=== PATIENT | male | born 1975 | race African-American/Black ===

== ENCOUNTER 2023-09-07 15:23 | Inpatient (IN) | payer OTHER ==
[2023-09-07 16:23] LABS: Actual Bicarbonate (HCO3v) 31.1 mEq/L (22-28); Calcium, Ionized (venous) 1.09 mmol/L (1.16-1.32); Chloride (VBG) 92 mmol/L (98-106); Hematocrit-VBG 51 % (42.0-52.0); Hemoglobin (Hb) 17.4 g/dL (13.1-17.2); Potassium (VBG) 4.39 mmol/L (3.70-5.30); Puncture Site Other Site; Sodium 137 mmol/L (133-146); pH (venous) 7.206 (7.32-7.43)
[2023-09-07 16:36] LABS: #Basophils 0.1 10x3/uL (0.0-0.2); #Eosinphils 0.2 10x3/uL (0.0-0.5); #Monocytes 1.1 10x3/uL (0.0-1.1); #Neutrophils 9.3 10x3/uL (1.5-8.4); %Basophils 0.8 % (0.0-2.0); %Eosinophils 1.2 % (0.0-6.0); %Lymphocytes 17.7 % (18.0-47.0); %Monocytes 8.3 % (0.0-10.0); %Neutrophils 71.3 % (40.0-75.0); Hematocrit 54.9 % (38.8-50.0); Hemoglobin 16.3 g/dL (13.5-17.5); Mean Corpuscular HGB CONC 29.7 g/dL (32.0-36.0); Mean Corpuscular Hemoglobin 26.5 pg (27.0-33.0); Mean Corpuscular Volume 89.3 fl (81.2-95.1); Mean Platelet Volume 10.2 fl (7.4-10.4); Platelet Count 242 10x3/uL (150-450); RBC Distribution Width 17.8 % (11.5-14.5); Red Blood Cell (RBC) Count 6.15 10x6/uL (4.32-5.72); White Blood Cell (WBC) Count 13.1 10x3/uL (3.5-10.5)
[2023-09-07 16:53] LABS: ALT (SGPT) 11 U/L (8-55); AST (SGOT) 15 U/L (5-34); Albumin 4.1 g/dL (3.5-5.0); Alkaline Phosphatase 71 U/L (40-110); Anion Gap 16 mmol/L (10-20); BUN (Urea Nitrogen) 14 mg/dL (8.9-20.6); Bilirubin, Total 1.1 mg/dL (0.2-1.2); Calc. Creatinine Clearance 0 mL/min (70-130); Carbon Dioxide 34 mmol/L (22-29); Chloride 91 mmol/L (98-107); Estimated GFR 83; Globulin 4.3 g/dL (2.4-3.5); Glucose 321 mg/dL (70-105); Potassium 4.5 mmol/L (3.5-5.1); Protein, Total 8.4 g/dL (6.0-8.3); Sodium 136 mmol/L (136-145)
[2023-09-07 16:55] LABS: SARS-CoV-2 NAA Rapid Test Not Detected (NotDetected)
[2023-09-07 17:16] LABS: Troponin I Less than 0.010 ng/mL (< 0.028)
[2023-09-07] MEDS ORDERED: Furosemide 40 MG/4 ML VIAL ONE (17:39)
[2023-09-07] MEDS ORDERED: cefTRIAXone (ROCEPHIN) 2 GM VIAL ONE (18:46)
[2023-09-07] MEDS ORDERED: Ipratropium/Albuterol 3 ML NEB ONE (19:10)
[2023-09-07] MEDS ORDERED: Azithromycin 500 MG VIAL ONE (19:21)
[2023-09-07 19:24] LABS: Actual Bicarbonate (HCO3v) 30.5 mEq/L (22-28); Base Excess 0.1 mEq/L (-2 - +2); Calcium, Ionized (venous) 1.07 mmol/L (1.16-1.32); Chloride (VBG) 92 mmol/L (98-106); Critical Notified By: Udy, RRT; Hematocrit-VBG 51 % (42.0-52.0); Hemoglobin (Hb) 17.4 g/dL (13.1-17.2); Potassium (VBG) 4.54 mmol/L (3.70-5.30); Puncture Site Other Site; RapidComm Collect By lab; Sodium 136 mmol/L (133-146); pH (venous) 7.229 (7.32-7.43)
[2023-09-07 19:28] LABS: Lactic Acid 1.5 mmol/L (0.5-2.2)
[2023-09-07] MEDS ORDERED: Glucagon 1 MG/ML KIT IM PRN (20:16)
[2023-09-07] MEDS ORDERED: Dextrose 5% in Water 1,000 ML IV PRN (20:16)
[2023-09-07] MEDS ORDERED: Dextrose 50% Abboject 50 ML SYRINGE SLOW IVP PRN (20:16)
[2023-09-07] MEDS ORDERED: Arformoterol 15 MCG/2 ML NEB NEB SCH (20:30)
[2023-09-07 20:38] LABS: Magnesium 2.3 mg/dL (1.6-2.6)
[2023-09-07] MEDS ORDERED: DISCONTINUE PREVIOUS NARCOTIC PAIN MEDICATIONS AND BENZODIAZEPINES FS SCH (22:15)
[2023-09-07] MEDS ORDERED: Propofol BOLUS 1,000 MG/100 ML VIAL IV PRN (22:15)
[2023-09-07] MEDS ORDERED: Fentanyl BOLUS 250 ML IVPB PRN (22:15)
[2023-09-07] MEDS: SODIUM CHLORIDE 0.9% IV SCH (22:25)
[2023-09-07] MEDS: FENTANYL IV SCH (22:25)
[2023-09-07] MEDS: Ipratropium/Albuterol 3 ML NEB NEB SCH (22:30)
[2023-09-07] MEDS: Lorazepam 2 MG/ML VIAL SLOW IVP PRN (22:30)
[2023-09-07 23:10] LABS: Bilirubin Neg (Negative); Blood, Urine 25 (Negative); Clarity Clear (Clear); Glucose, Urine (Dipstick) >=1000 mg/dL (Negative); Ketone, Urine Negative (Negative); Leukocyte Negative (Negative); Nitrite Negative (Negative); Protein, Urine (Dipstick) 500 mg/dl (Neg-Trace); Specific Gravity, Urine 1.025 (1.005-1.030)
[2023-09-07 23:18] LABS: Amphetamine Not Detected (NotDetected); Barbiturates Screen Not Detected (NotDetected); Benzodiazepine Screen Not Detected (NotDetected); Cocaine Metabolite Screen Not Detected (NotDetected); Methadone Not Detected (NotDetected); Methamphetamine Not Detected (NotDetected); Opiate Screen Not Detected (NotDetected); Oxycodone Screen Not Detected (NotDetected); Phencyclidine (PCP) Not Detected (NotDetected); THC/Cannabinoid Screen Not Detected (NotDetected); Tricyclic Screen Not Detected (NotDetected)
[2023-09-07 23:43] LABS: Bacteria/HPF 2+ HPF (None Seen)
[2023-09-07] MEDS: methylPREDNISolone Sod Succ 40 MG VIAL IVP SCH (23:43)
[2023-09-07] MEDS: Pantoprazole 40 MG VIAL IVP SCH (23:56)
[2023-09-08 00:19] LABS: Actual Bicarbonate (HCO3a) 36.6 mEq/L (22-28); Base Excess (BEa) 2.7 mEq/L (-2.0 to +3.0); CO2 Tension 108.6 mmHg (35.0-45.0); Calcium, Ionized (arterial) 1.19 mmol/L (1.12-1.30); Carboxyhemoglobin (COHb) 1.3 gm% (0.0-3.0); Hematocrit-ABG 51 % (42.0-52.0); Hemoglobin (Hb) 17.2 g/dL (14.0-18.0); O2 Tension (PaO2), arterial 93.3 mmHg (80.0-100.0); Potassium - ABG Lab 5.32 mmol/L (3.70-5.30); Puncture Site LRA; pH, Arterial 7.145 (7.35-7.45)
[2023-09-08 00:21] LABS: Actual Bicarbonate (HCO3a) 34.5 mEq/L (22-28); Base Excess (BEa) 4.1 mEq/L (-2.0 to +3.0); CO2 Tension 77.8 mmHg (35.0-45.0); Calcium, Ionized (arterial) 1.12 mmol/L (1.12-1.30); Carboxyhemoglobin (COHb) 1.3 gm% (0.0-3.0); Hematocrit-ABG 50 % (42.0-52.0); Hemoglobin (Hb) 17.1 g/dL (14.0-18.0); O2 Tension (PaO2), arterial 102.3 mmHg (80.0-100.0); Potassium - ABG Lab 5.18 mmol/L (3.70-5.30); Puncture Site RRA; Temperature 23.6 C; pH, Arterial 7.265 (7.35-7.45)
[2023-09-08] MEDS: Propofol 1,000 MG/100 ML VIAL IV PRN ×7 (00:50→23:15)
[2023-09-08] MEDS: Ipratropium/Albuterol 3 ML NEB NEB SCH ×7 (01:23→22:07)
[2023-09-08 04:16] LABS: #Basophils 0.1 10x3/uL (0.0-0.2); #Monocytes 0.6 10x3/uL (0.0-1.1); #Neutrophils 10.8 10x3/uL (1.5-8.4); %Basophils 0.5 % (0.0-2.0); %Eosinophils 0.1 % (0.0-6.0); %Lymphocytes 7.8 % (18.0-47.0); %Monocytes 4.9 % (0.0-10.0); %Neutrophils 86.1 % (40.0-75.0); Hematocrit 52.8 % (38.8-50.0); Mean Corpuscular HGB CONC 30.3 g/dL (32.0-36.0); Mean Corpuscular Hemoglobin 26.5 pg (27.0-33.0); Mean Corpuscular Volume 87.4 fl (81.2-95.1); Mean Platelet Volume 11.1 fl (7.4-10.4); Platelet Count 223 10x3/uL (150-450); Red Blood Cell (RBC) Count 6.04 10x6/uL (4.32-5.72); White Blood Cell (WBC) Count 12.6 10x3/uL (3.5-10.5)
[2023-09-08 04:23] LABS: ALV-art Gradient 428.625 mmHg (0-20); Actual Bicarbonate (HCO3a) 35.4 mEq/L (22-28); Base Excess (BEa) 9.2 mEq/L (-2.0 to +3.0); CO2 Tension 53.1 mmHg (35.0-45.0); Calcium, Ionized (arterial) 1.09 mmol/L (1.12-1.30); Carboxyhemoglobin (COHb) 1.1 gm% (0.0-3.0); Hematocrit-ABG 47 % (42.0-52.0); O2 Tension (PaO2), arterial 75.4 mmHg (80.0-100.0); Potassium - ABG Lab 4.85 mmol/L (3.70-5.30); Puncture Site Other Site; Temperature 25.3 C; pH, Arterial 7.442 (7.35-7.45)
[2023-09-08 04:28] LABS: Anion Gap 17 mmol/L (10-20); BUN (Urea Nitrogen) 16 mg/dL (8.9-20.6); Calc. Creatinine Clearance 309 mL/min (70-130); Carbon Dioxide 29 mmol/L (22-29); Chloride 95 mmol/L (98-107); Estimated GFR 104; Glucose 289 mg/dL (70-105); Magnesium 2.2 mg/dL (1.6-2.6); Potassium 4.7 mmol/L (3.5-5.1); Sodium 136 mmol/L (136-145)
[2023-09-08 04:36] LABS: Troponin I Less than 0.010 ng/mL (< 0.028)
[2023-09-08] MEDS: methylPREDNISolone Sod Succ 40 MG VIAL IVP SCH ×4 (06:00→23:15)
[2023-09-08] MEDS: Arformoterol 15 MCG/2 ML NEB NEB SCH ×2 (07:53→19:10)
[2023-09-08 08:01] LABS: Actual Bicarbonate (HCO3a) 28.3 mEq/L (22-28); Base Excess (BEa) 2.7 mEq/L (-2.0 to +3.0); CO2 Tension 46.7 mmHg (35.0-45.0); Calcium, Ionized (arterial) 1.11 mmol/L (1.12-1.30); Carboxyhemoglobin (COHb) 0.8 gm% (0.0-3.0); Hematocrit-ABG 49 % (42.0-52.0); Hemoglobin (Hb) 16.5 g/dL (14.0-18.0); O2 Tension (PaO2), arterial 72.6 mmHg (80.0-100.0); Potassium - ABG Lab 4.08 mmol/L (3.70-5.30); Puncture Site Arterial Line
[2023-09-08] MEDS: HumaLOG 300 UNITS/3 ML VIAL SC PRN ×4 (08:22→20:42)
[2023-09-08] MEDS ORDERED: Furosemide 40 MG/4 ML VIAL SLOW IVP SCH (10:00)
[2023-09-08] MEDS: Furosemide 40 MG/4 ML VIAL SLOW IVP SCH (13:08)
[2023-09-08] MEDS: FENTANYL IV SCH (14:17)
[2023-09-08] MEDS: SODIUM CHLORIDE 0.9% IV SCH (14:17)
[2023-09-08] MEDS: cefTRIAXone\\ROCEPHIN 2 GM in Sodium Chloride 0.9% 100 ML IVPB SCH (17:31)
[2023-09-08] MEDS: Pantoprazole 40 MG VIAL IVP SCH (20:43)
[2023-09-08] MEDS: Azithromycin 500 MG in Sodium Chloride 0.9% 250 ML 250 ML IVPB SCH (20:43)
[2023-09-09] MEDS: Ipratropium/Albuterol 3 ML NEB NEB SCH ×6 (02:04→22:24)
[2023-09-09] MEDS: Propofol 1,000 MG/100 ML VIAL IV PRN ×7 (02:20→22:06)
[2023-09-09 03:47] LABS: Anion Gap 13 mmol/L (10-20); BUN (Urea Nitrogen) 16 mg/dL (8.9-20.6); Calc. Creatinine Clearance 303 mL/min (70-130); Calcium 8.4 mg/dL (7.8-10.44); Carbon Dioxide 33 mmol/L (22-29); Chloride 97 mmol/L (98-107); Estimated GFR 101; Glucose 210 mg/dL (70-105); Potassium 3.9 mmol/L (3.5-5.1); Sodium 139 mmol/L (136-145)
[2023-09-09 04:39] LABS: #Monocytes 0.7 10x3/uL (0.0-1.1); #Neutrophils 15.4 10x3/uL (1.5-8.4); %Basophils 0.2 % (0.0-2.0); %Eosinophils 0.2 % (0.0-6.0); %Lymphocytes 6.5 % (18.0-47.0); %Neutrophils 88.4 % (40.0-75.0); Hematocrit 51.1 % (38.8-50.0); Hemoglobin 15.4 g/dL (13.5-17.5); Mean Corpuscular HGB CONC 30.1 g/dL (32.0-36.0); Mean Corpuscular Hemoglobin 26.1 pg (27.0-33.0); Mean Corpuscular Volume 86.8 fl (81.2-95.1); Mean Platelet Volume 10.6 fl (7.4-10.4); Platelet Count 249 10x3/uL (150-450); RBC Distribution Width 17.5 % (11.5-14.5); Red Blood Cell (RBC) Count 5.89 10x6/uL (4.32-5.72); White Blood Cell (WBC) Count 17.4 10x3/uL (3.5-10.5)
[2023-09-09] MEDS: methylPREDNISolone Sod Succ 40 MG VIAL IVP SCH ×3 (05:46→17:23)
[2023-09-09] MEDS: Furosemide 40 MG/4 ML VIAL SLOW IVP SCH ×2 (05:46→13:07)
[2023-09-09] MEDS: INSULIN REGULAR IN 0.9 % NACL 100 UNITS in Premix 1 BAG IVPB SCH ×3 (05:47→20:58)
[2023-09-09] MEDS: Arformoterol 15 MCG/2 ML NEB NEB SCH ×2 (06:50→20:25)
[2023-09-09 08:19] LABS: ALV-art Gradient 442.125 mmHg (0-20); Actual Bicarbonate (HCO3a) 35.6 mEq/L (22-28); Base Excess (BEa) 9.1 mEq/L (-2.0 to +3.0); CO2 Tension 54.7 mmHg (35.0-45.0); Calcium, Ionized (arterial) 1.12 mmol/L (1.12-1.30); Carboxyhemoglobin (COHb) 0.6 gm% (0.0-3.0); Hematocrit-ABG 47 % (42.0-52.0); Hemoglobin (Hb) 16.1 g/dL (14.0-18.0); O2 Tension (PaO2), arterial 59.9 mmHg (80.0-100.0); Potassium - ABG Lab 3.88 mmol/L (3.70-5.30); Puncture Site Arterial Line; Temperature 25.1 C; pH, Arterial 7.431 (7.35-7.45)
[2023-09-09] MEDS: Lorazepam 2 MG/ML VIAL SLOW IVP PRN ×3 (08:49→22:07)
[2023-09-09 10:27] LABS: Anion Gap 14 mmol/L (10-20); BUN (Urea Nitrogen) 17 mg/dL (8.9-20.6); Calc. Creatinine Clearance 282 mL/min (70-130); Calcium 8.5 mg/dL (7.8-10.44); Carbon Dioxide 33 mmol/L (22-29); Chloride 97 mmol/L (98-107); Estimated GFR 92; Glucose 156 mg/dL (70-105); Potassium 4.3 mmol/L (3.5-5.1); Sodium 140 mmol/L (136-145)
[2023-09-09] MEDS: SODIUM CHLORIDE 0.9% IV SCH (11:07)
[2023-09-09] MEDS: FENTANYL IV SCH (11:07)
[2023-09-09] MEDS: cefTRIAXone\\ROCEPHIN 2 GM in Sodium Chloride 0.9% 100 ML IVPB SCH (17:22)
[2023-09-09] MEDS: Pantoprazole 40 MG VIAL IVP SCH (20:57)
[2023-09-09] MEDS: Azithromycin 500 MG in Sodium Chloride 0.9% 250 ML 250 ML IVPB SCH (20:58)
[2023-09-09] MEDS ORDERED: Propofol 1,000 MG/100 ML VIAL IV ONE (22:06)
[2023-09-10] MEDS: methylPREDNISolone Sod Succ 40 MG VIAL IVP SCH ×2 (00:14→05:50)
[2023-09-10] MEDS: Propofol 1,000 MG/100 ML VIAL IV PRN ×7 (00:14→23:27)
[2023-09-10] MEDS: Ipratropium/Albuterol 3 ML NEB NEB SCH ×6 (02:56→22:29)
[2023-09-10 03:47] LABS: Actual Bicarbonate (HCO3a) 34.5 mEq/L (22-28); Base Excess (BEa) 8.1 mEq/L (-2.0 to +3.0); CO2 Tension 53.2 mmHg (35.0-45.0); Calcium, Ionized (arterial) 1.12 mmol/L (1.12-1.30); Carboxyhemoglobin (COHb) 0.4 gm% (0.0-3.0); Hematocrit-ABG 51 % (42.0-52.0); Hemoglobin (Hb) 17.2 g/dL (14.0-18.0); O2 Tension (PaO2), arterial 63.2 mmHg (80.0-100.0); Puncture Site LRA
[2023-09-10] MEDS: INSULIN REGULAR IN 0.9 % NACL 100 UNITS in Premix 1 BAG IVPB SCH (04:02)
[2023-09-10] MEDS: Lorazepam 2 MG/ML VIAL SLOW IVP PRN ×3 (04:08→23:18)
[2023-09-10 04:10] LABS: #Basophils 0.1 10x3/uL (0.0-0.2); #Eosinphils 0.1 10x3/uL (0.0-0.5); #Monocytes 1.3 10x3/uL (0.0-1.1); #Neutrophils 19.6 10x3/uL (1.5-8.4); %Basophils 0.2 % (0.0-2.0); %Eosinophils 0.4 % (0.0-6.0); %Lymphocytes 5.1 % (18.0-47.0); %Monocytes 5.8 % (0.0-10.0); %Neutrophils 87.8 % (40.0-75.0); Hematocrit 53.6 % (38.8-50.0); Hemoglobin 16.6 g/dL (13.5-17.5); Mean Corpuscular Hemoglobin 26.4 pg (27.0-33.0); Mean Corpuscular Volume 85.2 fl (81.2-95.1); Mean Platelet Volume 10.2 fl (7.4-10.4); Platelet Count 222 10x3/uL (150-450); RBC Distribution Width 18.5 % (11.5-14.5); Red Blood Cell (RBC) Count 6.29 10x6/uL (4.32-5.72); White Blood Cell (WBC) Count 22.3 10x3/uL (3.5-10.5)
[2023-09-10 04:18] LABS: Anion Gap 17 mmol/L (10-20); BUN (Urea Nitrogen) 23 mg/dL (8.9-20.6); Calc. Creatinine Clearance 296 mL/min (70-130); Calcium 8.7 mg/dL (7.8-10.44); Carbon Dioxide 29 mmol/L (22-29); Chloride 98 mmol/L (98-107); Estimated GFR 98; Glucose 158 mg/dL (70-105); Magnesium 2.4 mg/dL (1.6-2.6); Potassium 3.9 mmol/L (3.5-5.1); Sodium 140 mmol/L (136-145)
[2023-09-10] MEDS: FENTANYL IV SCH (04:28)
[2023-09-10] MEDS: SODIUM CHLORIDE 0.9% IV SCH (04:28)
[2023-09-10] MEDS: Furosemide 40 MG/4 ML VIAL SLOW IVP SCH ×2 (05:50→13:23)
[2023-09-10] MEDS: Arformoterol 15 MCG/2 ML NEB NEB SCH (07:05)
[2023-09-10] MEDS: HumaLOG 300 UNITS/3 ML VIAL SC PRN ×3 (11:45→20:55)
[2023-09-10] MEDS: cefTRIAXone\\ROCEPHIN 2 GM in Sodium Chloride 0.9% 100 ML IVPB SCH (17:41)
[2023-09-10] MEDS: Morphine 2 MG/ML VIAL SLOW IVP PRN (19:37)
[2023-09-10] MEDS: Pantoprazole 40 MG VIAL IVP SCH (20:55)
[2023-09-10] MEDS: FENTANYL 2,000MCG/100-0.9%NACL 100 ML IVPB SCH (22:53)
[2023-09-11] MEDS: HumaLOG 300 UNITS/3 ML VIAL SC PRN ×5 (00:38→20:42)
[2023-09-11] MEDS: Morphine 2 MG/ML VIAL SLOW IVP PRN (02:17)
[2023-09-11] MEDS: Ipratropium/Albuterol 3 ML NEB NEB SCH ×6 (02:21→22:40)
[2023-09-11] MEDS: Lorazepam 2 MG/ML VIAL SLOW IVP PRN ×3 (02:35→20:53)
[2023-09-11] MEDS: Propofol 1,000 MG/100 ML VIAL IV PRN ×2 (04:17→20:53)
[2023-09-11 05:29] LABS: Actual Bicarbonate (HCO3a) 35.7 mEq/L (22-28); Analyzer IN Cardio CS ICU; Base Excess (BEa) 7.9 mEq/L (-2.0 to +3.0); CO2 Tension 61.8 mmHg (35.0-45.0); Calcium, Ionized (arterial) 1.07 mmol/L (1.12-1.30); Hematocrit-ABG 47 % (42.0-52.0); O2 Tension (PaO2), arterial 79.5 mmHg (80.0-100.0); Potassium - ABG Lab 4.01 mmol/L (3.70-5.30); Puncture Site LRA; pH, Arterial 7.379 (7.35-7.45)
[2023-09-11] MEDS: Furosemide 40 MG/4 ML VIAL SLOW IVP SCH ×2 (06:02→12:59)
[2023-09-11] MEDS: cefTRIAXone\\ROCEPHIN 2 GM in Sodium Chloride 0.9% 100 ML IVPB SCH (17:29)
[2023-09-11] MEDS: Pantoprazole 40 MG VIAL IVP SCH (20:41)
[2023-09-12] MEDS: FENTANYL 2,000MCG/100-0.9%NACL 100 ML IVPB SCH (00:03)
[2023-09-12] MEDS: HumaLOG 300 UNITS/3 ML VIAL SC PRN ×3 (00:51→14:10)
[2023-09-12] MEDS: Acetaminophen 650 MG/20.3 ML UDCUP PER TUBE PRN ×4 (00:56→23:06)
[2023-09-12] MEDS: Propofol 1,000 MG/100 ML VIAL IV PRN ×3 (02:34→17:33)
[2023-09-12] MEDS: Ipratropium/Albuterol 3 ML NEB NEB SCH ×6 (02:50→23:20)
[2023-09-12 03:48] LABS: #Eosinphils 0.2 10x3/uL (0.0-0.5); #Monocytes 1.6 10x3/uL (0.0-1.1); #Neutrophils 11.3 10x3/uL (1.5-8.4); %Basophils 0.2 % (0.0-2.0); %Eosinophils 1.1 % (0.0-6.0); %Monocytes 10.2 % (0.0-10.0); Hematocrit 48.8 % (38.8-50.0); Hemoglobin 14.7 g/dL (13.5-17.5); Mean Corpuscular HGB CONC 30.1 g/dL (32.0-36.0); Mean Corpuscular Hemoglobin 26.5 pg (27.0-33.0); Mean Corpuscular Volume 87.9 fl (81.2-95.1); Mean Platelet Volume 10.9 fl (7.4-10.4); Platelet Count 181 10x3/uL (150-450); Red Blood Cell (RBC) Count 5.55 10x6/uL (4.32-5.72); White Blood Cell (WBC) Count 15.4 10x3/uL (3.5-10.5)
[2023-09-12 04:02] LABS: Anion Gap 12 mmol/L (10-20); BUN (Urea Nitrogen) 27 mg/dL (8.9-20.6); Calc. Creatinine Clearance 338 mL/min (70-130); Carbon Dioxide 36 mmol/L (22-29); Chloride 97 mmol/L (98-107); Estimated GFR 109; Glucose 258 mg/dL (70-105); Sodium 141 mmol/L (136-145)
[2023-09-12] MEDS: Furosemide 40 MG/4 ML VIAL SLOW IVP SCH ×2 (05:52→13:53)
[2023-09-12] MEDS ORDERED: Piperacillin/Tazobactam 3.375 GM in Sodium Chloride 0.9% 100 ML IVPB SCH ×2 (15:00→16:00)
[2023-09-12 15:58] VITALS: BMI 69.5
[2023-09-12] MEDS: methylPREDNISolone Sod Succ 40 MG VIAL IVP SCH ×2 (18:36→23:07)
[2023-09-12] MEDS: Piperacillin/Tazobactam 3.375 GM in Sodium Chloride 0.9% 100 ML IVPB SCH (20:57)
[2023-09-12] MEDS: Pantoprazole 40 MG VIAL IVP SCH (20:58)
[2023-09-12 23:26] VITALS: BP 118/62
[2023-09-13] MEDS: HumaLOG 300 UNITS/3 ML VIAL SC PRN ×7 (00:09→23:26)
[2023-09-13 00:14] VITALS: TEMP 100.4
[2023-09-13] MEDS: Ipratropium/Albuterol 3 ML NEB NEB SCH ×6 (02:00→23:00)
[2023-09-13 03:10] LABS: Actual Bicarbonate (HCO3a) 36.7 mEq/L (22-28); Analyzer IN Cardio CS ICU; Base Excess (BEa) 9.7 mEq/L (-2.0 to +3.0); CO2 Tension 57.3 mmHg (35.0-45.0); Calcium, Ionized (arterial) 1.11 mmol/L (1.12-1.30); Critical Notified By: CP.PH; Hematocrit-ABG 48 % (42.0-52.0); Hemoglobin (Hb) 16.2 g/dL (14.0-18.0); O2 Tension (PaO2), arterial 78.1 mmHg (80.0-100.0); Potassium - ABG Lab 4.42 mmol/L (3.70-5.30); Puncture Site Arterial Line; RapidComm Collect By CBN; pH, Arterial 7.424 (7.35-7.45)
[2023-09-13 03:18] LABS: #Monocytes 0.7 10x3/uL (0.0-1.1); #Neutrophils 12.3 10x3/uL (1.5-8.4); %Basophils 0.1 % (0.0-2.0); %Eosinophils 0.2 % (0.0-6.0); %Lymphocytes 6.9 % (18.0-47.0); %Monocytes 5.2 % (0.0-10.0); Hematocrit 51.8 % (38.8-50.0); Hemoglobin 15.8 g/dL (13.5-17.5); Mean Corpuscular HGB CONC 30.5 g/dL (32.0-36.0); Mean Corpuscular Hemoglobin 26.8 pg (27.0-33.0); Mean Corpuscular Volume 87.8 fl (81.2-95.1); Mean Platelet Volume 10.8 fl (7.4-10.4); Platelet Count 188 10x3/uL (150-450); RBC Distribution Width 17.9 % (11.5-14.5); White Blood Cell (WBC) Count 14.1 10x3/uL (3.5-10.5)
[2023-09-13 04:19] LABS: Anion Gap 16 mmol/L (10-20); BUN (Urea Nitrogen) 25 mg/dL (8.9-20.6); Calc. Creatinine Clearance 334 mL/min (70-130); Calcium 8.5 mg/dL (7.8-10.44); Carbon Dioxide 34 mmol/L (22-29); Chloride 98 mmol/L (98-107); Estimated GFR 108; Glucose 318 mg/dL (70-105); Potassium 4.8 mmol/L (3.5-5.1); Sodium 143 mmol/L (136-145)
[2023-09-13] MEDS: Piperacillin/Tazobactam 3.375 GM in Sodium Chloride 0.9% 100 ML IVPB SCH ×3 (04:37→20:42)
[2023-09-13] MEDS: Furosemide 40 MG/4 ML VIAL SLOW IVP SCH ×2 (05:17→13:35)
[2023-09-13] MEDS: methylPREDNISolone Sod Succ 40 MG VIAL IVP SCH ×2 (05:17→11:55)
[2023-09-13] MEDS: Pantoprazole 40 MG VIAL IVP SCH (20:41)
[2023-09-14] MEDS: Ipratropium/Albuterol 3 ML NEB NEB SCH ×3 (02:15→11:00)
[2023-09-14] MEDS: HumaLOG 300 UNITS/3 ML VIAL SC PRN ×2 (03:50→07:34)
[2023-09-14] MEDS: Piperacillin/Tazobactam 3.375 GM in Sodium Chloride 0.9% 100 ML IVPB SCH (03:50)
[2023-09-14] MEDS: Furosemide 40 MG/4 ML VIAL SLOW IVP SCH (05:07)
[2023-09-14] MEDS ORDERED: methylPREDNISolone Sod Succ 40 MG VIAL IVP SCH (09:00)
== END 2023-09-14 11:34 | disposition home or self-care (01) | DRG 207 ==
LOC: CSHERS 15:23 → CSHIMCU 18:26
PROVIDERS: ADMIT Family Medicine; ATTEND Hospitalist
PROC: 0BH17EZ Insertion of Endotracheal Airway into Trachea, Via Natural or Artificial Opening (ICD-10-PCS; principal; 2023-09-07)
PROC: 5A1955Z Respiratory Ventilation, Greater than 96 Consecutive Hours (ICD-10-PCS; 2023-09-07)
PROC: 4A133R1 Monitoring of Arterial Saturation, Peripheral, Percutaneous Approach (ICD-10-PCS; 2023-09-07)
PROC: 03HY32Z Insertion of Monitoring Device into Upper Artery, Percutaneous Approach (ICD-10-PCS; 2023-09-08)
PROC: 4A133B1 Monitoring of Arterial Pressure, Peripheral, Percutaneous Approach (ICD-10-PCS; 2023-09-08)
PROC: 4A133J1 Monitoring of Arterial Pulse, Peripheral, Percutaneous Approach (ICD-10-PCS; 2023-09-08)
PROC: 5A09357 Assistance with Respiratory Ventilation, Less than 24 Consecutive Hours, Continuous Positive Airway Pressure (ICD-10-PCS; 2023-09-13)
DX: J96.21 Acute and chronic respiratory failure with hypoxia (principal); G93.41 Metabolic encephalopathy; I50.33 Acute on chronic diastolic (congestive) heart failure; E66.2 Morbid (severe) obesity with alveolar hypoventilation; Z68.45 Body mass index [BMI] 70 or greater, adult; I11.0 Hypertensive heart disease with heart failure; J96.22 Acute and chronic respiratory failure with hypercapnia; E11.9 Type 2 diabetes mellitus without complications; Z79.84 Long term (current) use of oral hypoglycemic drugs; Z79.899 Other long term (current) drug therapy; Z82.49 Family history of ischemic heart disease and other diseases of the circulatory system; Z99.81 Dependence on supplemental oxygen; Z11.52 Encounter for screening for COVID-19
CPT/HCPCS: 36415; 36416; 36600; 71045; 80048; 80053; 80306; 81003; 81015; 82805; 83605; 83735; 83880; 84145; 84484; 85025; 87040; 87070; 87205; 93005; 93010; 93306; 93970; 94002; 94003; 94150; 94640; 94660; 94760; 94762; C9113; J0456; J0696; J1650; J1815; J1940; J2060; J2272; J2543; J2704; J2920; J3010; J3490; J7050; J7620

== ENCOUNTER 2024-01-13 12:21 | Inpatient (IN) | payer OTHER ==
[2024-01-13 13:44] LABS: #Basophils 0.1 10x3/uL (0.0-0.2); #Eosinphils 0.1 10x3/uL (0.0-0.5); #Monocytes 1.2 10x3/uL (0.0-1.1); #Neutrophils 7.8 10x3/uL (1.5-8.4); %Basophils 1.2 % (0.0-2.0); %Lymphocytes 15.1 % (18.0-47.0); %Monocytes 10.8 % (0.0-10.0); %Neutrophils 71.2 % (40.0-75.0); Hematocrit 57.5 % (38.8-50.0); Hemoglobin 17.1 g/dL (13.5-17.5); Mean Corpuscular HGB CONC 29.7 g/dL (32.0-36.0); Mean Corpuscular Hemoglobin 26.6 pg (27.0-33.0); Mean Corpuscular Volume 89.4 fl (81.2-95.1); Mean Platelet Volume 10.5 fl (7.4-10.4); Platelet Count 265 10x3/uL (150-450); RBC Distribution Width 20.6 % (11.5-14.5); Red Blood Cell (RBC) Count 6.43 10x6/uL (4.32-5.72)
[2024-01-13 13:58] LABS: ALT (SGPT) 15 U/L (8-55); AST (SGOT) 19 U/L (5-34); Albumin 3.8 g/dL (3.5-5.0); Alkaline Phosphatase 83 U/L (40-110); Anion Gap 15 mmol/L (10-20); BUN (Urea Nitrogen) 29 mg/dL (8.9-20.6); Bilirubin, Total 2.2 mg/dL (0.2-1.2); Calc. Creatinine Clearance 0 mL/min (70-130); Calcium 8.9 mg/dL (7.8-10.44); Carbon Dioxide 28 mmol/L (22-29); Chloride 98 mmol/L (98-107); Estimated GFR 34; Globulin 3.6 g/dL (2.4-3.5); Glucose 232 mg/dL (70-105); Potassium 5.3 mmol/L (3.5-5.1); Protein, Total 7.4 g/dL (6.0-8.3); Sodium 136 mmol/L (136-145)
[2024-01-13 14:04] LABS: Troponin I 0.047 ng/mL (< 0.028)
[2024-01-13] MEDS ORDERED: Ipratropium/Albuterol 3 ML NEB ONE (14:51)
[2024-01-13 14:57] LABS: Actual Bicarbonate (HCO3v) 28.9 mEq/L (22-28); Analyzer IN Cardio CS ER; Base Excess -1.1 mEq/L (-2 - +2); Calcium, Ionized (venous) 1.09 mmol/L (1.16-1.32); Chloride (VBG) 94 mmol/L (98-106); Critical Notified Whom: COCJEF; Hematocrit-VBG 56 % (42.0-52.0); Hemoglobin (Hb) 19.2 g/dL (13.1-17.2); Potassium (VBG) 4.94 mmol/L (3.70-5.30); Puncture Site Other Site; RapidComm Collect By CBN; Sodium 138 mmol/L (133-146); pH (venous) 7.239 (7.32-7.43)
[2024-01-13] MEDS ORDERED: Furosemide 40 MG (4 mL) VIAL ONE (15:40)
[2024-01-13] MEDS ORDERED: Cefepime 2 GM VIAL ONE (15:40)
[2024-01-13 16:36] LABS: Lactic Acid 1.7 mmol/L (0.5-2.2)
[2024-01-13] MEDS ORDERED: Vancomycin 1 GM VIAL ONE (17:31)
[2024-01-13 17:58] VITALS: BMI 77.4
[2024-01-13 17:58] LABS: SARS-CoV-2 E Target Negative; SARS-CoV-2 N2 Target Negative; SARS-CoV-2 NAA Rapid Test Not Detected (NotDetected); SARS-CoV-2 RdRP gene Negative
[2024-01-13] MEDS ORDERED: Dextrose 50% Abboject 50 ML SYRINGE SLOW IVP PRN (17:59)
[2024-01-13] MEDS ORDERED: Glucagon 1 MG/ML KIT IM PRN (17:59)
[2024-01-13] MEDS ORDERED: Dextrose 5% in Water 1,000 ML IV PRN (17:59)
[2024-01-13] MEDS ORDERED: Ipratropium/Albuterol 3 ML NEB NEB PRN (18:03)
[2024-01-13 18:47] LABS: Troponin I 0.046 ng/mL (< 0.028)
[2024-01-13 18:56] LABS: Actual Bicarbonate (HCO3a) 33.5 mEq/L (22-28); Analyzer IN Cardio CS ICU; Base Excess (BEa) 0.1 mEq/L (-2.0 to +3.0); CO2 Tension 102.4 mmHg (35.0-45.0); Calcium, Ionized (arterial) 1.19 mmol/L (1.12-1.30); Carboxyhemoglobin (COHb) 2.4 gm% (0.0-3.0); Hematocrit-ABG 50 % (42.0-52.0); O2 Tension (PaO2), arterial 87.6 mmHg (80.0-100.0); Potassium - ABG Lab 5.24 mmol/L (3.70-5.30); Puncture Site RRA; pH, Arterial 7.132 (7.35-7.45)
[2024-01-13] MEDS: Ipratropium/Albuterol 3 ML NEB NEB SCH (19:00)
[2024-01-13] MEDS ORDERED: Vancomycin Dose by Levels Sliding Scale (Wt > 99) FS SCH (19:15)
[2024-01-13] MEDS: Heparin 5,000 UNITS/ML VIAL SC SCH (20:46)
[2024-01-13] MEDS: methylPREDNISolone Sod Succ 40 MG VIAL IVP SCH (23:23)
[2024-01-13] MEDS ORDERED: methylPREDNISolone Sod Succ 40 MG VIAL IVP SCH (23:59)
[2024-01-14] MEDS ORDERED: Vancomycin 1 GM in Sodium Chloride 0.9% 250 ML 250 ML IVPB SCH (05:00)
[2024-01-14] MEDS: Cefepime 2 GM in Sodium Chloride 0.9% 100 ML IVPB SCH (05:22)
[2024-01-14 05:33] LABS: #Basophils 0.1 10x3/uL (0.0-0.2); #Monocytes 0.8 10x3/uL (0.0-1.1); #Neutrophils 10.5 10x3/uL (1.5-8.4); %Basophils 0.7 % (0.0-2.0); %Eosinophils 0.2 % (0.0-6.0); %Lymphocytes 9.1 % (18.0-47.0); %Neutrophils 83.4 % (40.0-75.0); Hematocrit 57.2 % (38.8-50.0); Hemoglobin 17.1 g/dL (13.5-17.5); Mean Corpuscular HGB CONC 29.9 g/dL (32.0-36.0); Mean Corpuscular Hemoglobin 27.1 pg (27.0-33.0); Mean Corpuscular Volume 90.8 fl (81.2-95.1); Mean Platelet Volume 10.3 fl (7.4-10.4); Platelet Count 257 10x3/uL (150-450); RBC Distribution Width 19.8 % (11.5-14.5); White Blood Cell (WBC) Count 12.6 10x3/uL (3.5-10.5)
[2024-01-14 06:15] LABS: ALT (SGPT) 13 U/L (8-55); AST (SGOT) 17 U/L (5-34); Albumin 3.5 g/dL (3.5-5.0); Alkaline Phosphatase 70 U/L (40-110); Anion Gap 19 mmol/L (10-20); BUN (Urea Nitrogen) 31 mg/dL (8.9-20.6); Bilirubin, Total 1.9 mg/dL (0.2-1.2); Calc. Creatinine Clearance 151 mL/min (70-130); Calcium 8.9 mg/dL (7.8-10.44); Carbon Dioxide 25 mmol/L (22-29); Chloride 97 mmol/L (98-107); Estimated GFR 36; Globulin 3.7 g/dL (2.4-3.5); Glucose 194 mg/dL (70-105); Protein, Total 7.2 g/dL (6.0-8.3); Sodium 136 mmol/L (136-145)
[2024-01-14] MEDS: Furosemide 40 MG (4 mL) VIAL SLOW IVP SCH (09:19)
[2024-01-14 12:33] LABS: Actual Bicarbonate (HCO3v) 35.1 mEq/L (22-28); Analyzer IN Cardio CS ER; Base Excess 5.2 mEq/L (-2 - +2); Chloride (VBG) 94 mmol/L (98-106); Hematocrit-VBG 53 % (42.0-52.0); Hemoglobin (Hb) 17.9 g/dL (13.1-17.2); Potassium (VBG) 5.34 mmol/L (3.70-5.30); Puncture Site Other Site; RapidComm Collect By CBN; Sodium 140 mmol/L (133-146)
[2024-01-14] MEDS: FLU VACC QS2023-24(6MOS UP)/PF 60 MCG/0.5 ML SYRINGE IM ONE (12:56)
[2024-01-14] MEDS: HumaLOG 300 UNITS/3 ML VIAL SC PRN (17:42)
[2024-01-15 02:35] LABS: #Eosinphils 0.1 10x3/uL (0.0-0.5); #Monocytes 0.7 10x3/uL (0.0-1.1); #Neutrophils 12.1 10x3/uL (1.5-8.4); %Basophils 0.3 % (0.0-2.0); %Eosinophils 0.7 % (0.0-6.0); %Lymphocytes 6.1 % (18.0-47.0); %Monocytes 4.7 % (0.0-10.0); %Neutrophils 87.8 % (40.0-75.0); Hemoglobin 16.3 g/dL (13.5-17.5); Mean Corpuscular HGB CONC 29.6 g/dL (32.0-36.0); Mean Corpuscular Volume 87.6 fl (81.2-95.1); Mean Platelet Volume 10.1 fl (7.4-10.4); Platelet Count 255 10x3/uL (150-450); RBC Distribution Width 20.1 % (11.5-14.5); Red Blood Cell (RBC) Count 6.28 10x6/uL (4.32-5.72); White Blood Cell (WBC) Count 13.7 10x3/uL (3.5-10.5)
[2024-01-15 02:49] LABS: Anion Gap 14 mmol/L (10-20); BUN (Urea Nitrogen) 30 mg/dL (8.9-20.6); Calc. Creatinine Clearance 148 mL/min (70-130); Carbon Dioxide 30 mmol/L (22-29); Chloride 96 mmol/L (98-107); Estimated GFR 35; Glucose 254 mg/dL (70-105); Potassium 4.7 mmol/L (3.5-5.1); Sodium 135 mmol/L (136-145)
[2024-01-15] MEDS: HumaLOG 300 UNITS/3 ML VIAL SC PRN ×2 (16:48→21:26)
[2024-01-15 19:27] LABS: Creatinine, Urine 112.75 mg/dL (63-166)
[2024-01-15] MEDS: Lantus 1000 UNITS/10 ML VIAL SC SCH (21:25)
[2024-01-15] MEDS: Nystatin Powder 15 GM BOT TOP SCH (21:31)
[2024-01-16 03:16] LABS: Hematocrit 52.6 % (38.8-50.0); Hemoglobin 16.1 g/dL (13.5-17.5); Mean Corpuscular HGB CONC 30.6 g/dL (32.0-36.0); Mean Corpuscular Hemoglobin 26.7 pg (27.0-33.0); Mean Corpuscular Volume 87.1 fl (81.2-95.1); Mean Platelet Volume 10.1 fl (7.4-10.4); Platelet Count 233 10x3/uL (150-450); RBC Distribution Width 19.4 % (11.5-14.5); Red Blood Cell (RBC) Count 6.04 10x6/uL (4.32-5.72); White Blood Cell (WBC) Count 14.2 10x3/uL (3.5-10.5)
[2024-01-16 03:18] LABS: MDiff Complete? YES
[2024-01-16 03:56] LABS: ALT (SGPT) 9 U/L (8-55); AST (SGOT) 12 U/L (5-34); Albumin 3.5 g/dL (3.5-5.0); Alkaline Phosphatase 62 U/L (40-110); Anion Gap 11 mmol/L (10-20); BUN (Urea Nitrogen) 28 mg/dL (8.9-20.6); Bilirubin, Total 1.9 mg/dL (0.2-1.2); Calc. Creatinine Clearance 184 mL/min (70-130); Calcium 8.8 mg/dL (7.8-10.44); Carbon Dioxide 33 mmol/L (22-29); Chloride 97 mmol/L (98-107); Estimated GFR 46; Globulin 3.5 g/dL (2.4-3.5); Glucose 282 mg/dL (70-105); Potassium 4.4 mmol/L (3.5-5.1); Sodium 137 mmol/L (136-145)
[2024-01-16 04:10] LABS: Band 4 % (5-11); Lymphocytes 3 % (21-51); Monocytes 6 % (0-10); Neutrophil 87 % (42-75); Nucleated RBC (Manual Ct) 1 % (0)
[2024-01-16 04:15] LABS: Anisocytosis SLIGHT = 6-15 cells (100X) (0-5/hpf)
[2024-01-16 04:16] LABS: Platelet Adequacy Comment Appears Adequate
[2024-01-16] MEDS: Furosemide 40 MG (4 mL) VIAL SLOW IVP SCH (06:31)
[2024-01-16 06:50] LABS: Actual Bicarbonate (HCO3a) 33.7 mEq/L (22-28); Analyzer IN Cardio CS ICU; Base Excess (BEa) 6.9 mEq/L (-2.0 to +3.0); CO2 Tension 55.2 mmHg (35.0-45.0); Calcium, Ionized (arterial) 1.17 mmol/L (1.12-1.30); Carboxyhemoglobin (COHb) 2.3 gm% (0.0-3.0); Critical Notified Whom: OBICH; Hematocrit-ABG 50 % (42.0-52.0); Hemoglobin (Hb) 16.9 g/dL (14.0-18.0); O2 Tension (PaO2), arterial 50.6 mmHg (80.0-100.0); Potassium - ABG Lab 4.32 mmol/L (3.70-5.30); Puncture Site RRA; pH, Arterial 7.404 (7.35-7.45)
[2024-01-16] MEDS: Empagliflozin 10 MG TAB PO SCH (08:12)
[2024-01-16] MEDS: Spironolactone 25 MG TAB PO SCH (08:12)
[2024-01-16] MEDS: AcetaZOLAMIDE 250 MG TAB PO SCH (08:13)
[2024-01-16] MEDS: Metolazone 2.5 MG TAB PO SCH (08:14)
[2024-01-16] MEDS ORDERED: Furosemide 40 MG TAB PO SCH (09:00)
[2024-01-16] MEDS: Furosemide 100 MG (10 mL) VIAL SLOW IVP SCH (14:22)
[2024-01-16 14:56] LABS: Hemoglobin A1c 9.9 % (4.0-6.0)
[2024-01-16] MEDS: Carvedilol 6.25 MG TAB PO SCH (16:09)
[2024-01-16] MEDS: Cefepime 2 GM in Sodium Chloride 0.9% 100 ML IVPB SCH (16:11)
[2024-01-16 17:29] LABS: 24 Hr Creatinine 1912.26 mg/24 hr (950-2490); Creatinine, Urine 43.96 mg/dL (63-166)
[2024-01-16] MEDS ORDERED: cefTRIAXone\\ROCEPHIN 1 GM in Sodium Chloride 0.9% 100 ML IVPB SCH (21:00)
[2024-01-17 03:22] LABS: #Monocytes 1.6 10x3/uL (0.0-1.1); #Neutrophils 11.4 10x3/uL (1.5-8.4); %Basophils 0.3 % (0.0-2.0); %Eosinophils 0.1 % (0.0-6.0); %Lymphocytes 11.8 % (18.0-47.0); %Monocytes 10.6 % (0.0-10.0); %Neutrophils 76.7 % (40.0-75.0); Hematocrit 56.7 % (38.8-50.0); Hemoglobin 17.3 g/dL (13.5-17.5); Mean Corpuscular HGB CONC 30.5 g/dL (32.0-36.0); Mean Corpuscular Hemoglobin 26.7 pg (27.0-33.0); Mean Corpuscular Volume 87.4 fl (81.2-95.1); Mean Platelet Volume 10.3 fl (7.4-10.4); Platelet Count 234 10x3/uL (150-450); RBC Distribution Width 19.8 % (11.5-14.5); Red Blood Cell (RBC) Count 6.49 10x6/uL (4.32-5.72); White Blood Cell (WBC) Count 14.8 10x3/uL (3.5-10.5)
[2024-01-17 03:51] LABS: ALT (SGPT) 10 U/L (8-55); AST (SGOT) 12 U/L (5-34); Albumin 3.9 g/dL (3.5-5.0); Alkaline Phosphatase 65 U/L (40-110); BUN (Urea Nitrogen) 29 mg/dL (8.9-20.6); Bilirubin, Total 2.7 mg/dL (0.2-1.2); Calc. Creatinine Clearance 185 mL/min (70-130); Calcium 9.5 mg/dL (7.8-10.44); Estimated GFR 46; Globulin 3.8 g/dL (2.4-3.5); Glucose 184 mg/dL (70-105); Protein, Total 7.7 g/dL (6.0-8.3)
[2024-01-17 03:59] LABS: Anion Gap 21 mmol/L (10-20); Carbon Dioxide 32 mmol/L (22-29); Chloride 90 mmol/L (98-107); Potassium 3.7 mmol/L (3.5-5.1); Sodium 139 mmol/L (136-145)
[2024-01-17] MEDS: Furosemide 40 MG (4 mL) VIAL SLOW IVP SCH (06:40)
[2024-01-17] MEDS: Spironolactone 25 MG TAB PO SCH (08:07)
[2024-01-17] MEDS: methylPREDNISolone Sod Succ 40 MG VIAL IVP SCH (08:07)
[2024-01-17] MEDS: Carvedilol 12.5 MG TAB PO SCH (17:05)
[2024-01-18 03:24] LABS: #Basophils 0.03 10x3/uL (0.0-0.2); #Eosinphils 0.13 10x3/uL (0.0-0.5); #Monocytes 1.71 10x3/uL (0.0-1.1); #Neutrophils 11.63 10x3/uL (1.5-8.4); %Basophils 0.2 % (0.0-2.0); %Eosinophils 0.8 % (0.0-6.0); %Lymphocytes 14.2 % (18.0-47.0); %Monocytes 10.8 % (0.0-10.0); %Neutrophils 73.6 % (40.0-75.0); Hematocrit 56.3 % (38.8-50.0); Mean Corpuscular HGB CONC 30.2 g/dL (32.0-36.0); Mean Corpuscular Hemoglobin 26.1 pg (27.0-33.0); Mean Corpuscular Volume 86.5 fl (81.2-95.1); Mean Platelet Volume 10.4 fl (7.4-10.4); Platelet Count 216 10x3/uL (150-450); RBC Distribution Width 19.1 % (11.5-14.5); Red Blood Cell (RBC) Count 6.51 10x6/uL (4.32-5.72); White Blood Cell (WBC) Count 15.8 10x3/uL (3.5-10.5)
[2024-01-18 03:47] LABS: BUN (Urea Nitrogen) 31 mg/dL (8.9-20.6); Calc. Creatinine Clearance 204 mL/min (70-130); Calcium 9.8 mg/dL (7.8-10.44); Estimated GFR 52; Glucose 160 mg/dL (70-105)
[2024-01-18 03:55] LABS: Anion Gap 18 mmol/L (10-20); Carbon Dioxide 36 mmol/L (22-29); Chloride 86 mmol/L (98-107); Potassium 3.5 mmol/L (3.5-5.1); Sodium 136 mmol/L (136-145)
[2024-01-18] MEDS: Cefepime 2 GM VIAL ONE ×2 (06:21)
[2024-01-18] MEDS: Potassium Chloride 20 MEQ TAB PO SCH (06:27)
[2024-01-18] MEDS: Torsemide 100 MG TAB PO SCH (07:08)
[2024-01-18] MEDS: AcetaZOLAMIDE 250 MG TAB PO SCH (07:43)
[2024-01-18] MEDS: Spironolactone 25 MG TAB PO SCH (07:43)
[2024-01-18] MEDS: predniSONE 20 MG TAB PO SCH (07:43)
[2024-01-18 08:22] VITALS: BP 108/87; TEMP 98.4
[2024-01-20 18:13] LABS: A/G Ratio 0.8 (0.7-1.7); Albumin 2.9 g/dL (2.9-4.4); Alpha 1 0.2 g/dL (0.0-0.4); Alpha 2 0.9 g/dL (0.4-1.0); Gamma 1.5 g/dL (0.4-1.8); Globulin, Total 3.7 g/dL (2.2-3.9); M-Spike 0.4 g/dL (Not Observed); Protein Electrophoresis Intrp Note: (.)
== END 2024-01-18 12:45 | disposition home or self-care (01) | DRG 205 ==
LOC: CSHERS 12:21 → CSHICU 17:55
PROVIDERS: ADMIT Internal Medicine; ATTEND Emergency Medicine
PROC: 5A09457 Assistance with Respiratory Ventilation, 24-96 Consecutive Hours, Continuous Positive Airway Pressure (ICD-10-PCS; principal; 2024-01-13)
DX: E66.2 Morbid (severe) obesity with alveolar hypoventilation (principal); I50.43 Acute on chronic combined systolic (congestive) and diastolic (congestive) heart failure; J96.21 Acute and chronic respiratory failure with hypoxia; J96.22 Acute and chronic respiratory failure with hypercapnia; J18.9 Pneumonia, unspecified organism; N17.9 Acute kidney failure, unspecified; L03.311 Cellulitis of abdominal wall; Z68.45 Body mass index [BMI] 70 or greater, adult; J44.1 Chronic obstructive pulmonary disease with (acute) exacerbation; E87.3 Alkalosis; I13.0 Hypertensive heart and chronic kidney disease with heart failure and stage 1 through stage 4 chronic kidney disease, or unspecified chronic kidney disease; I42.9 Cardiomyopathy, unspecified; J44.0 Chronic obstructive pulmonary disease with (acute) lower respiratory infection; Z79.899 Other long term (current) drug therapy; Z79.84 Long term (current) use of oral hypoglycemic drugs; Z82.49 Family history of ischemic heart disease and other diseases of the circulatory system; D75.1 Secondary polycythemia; Z79.01 Long term (current) use of anticoagulants; Z79.4 Long term (current) use of insulin; N18.9 Chronic kidney disease, unspecified; E11.22 Type 2 diabetes mellitus with diabetic chronic kidney disease
CPT/HCPCS: 36415; 36416; 36600; 71045; 76705; 76770; 80048; 80053; 82570; 82805; 83036; 83605; 83880; 84145; 84155; 84156; 84165; 84166; 84300; 84484; 84540; 85025; 87040; 93005; 93306; 94640; 94660; 94760; 94762; 96374; 96375; 97139; J0692; J1644; J1815; J1940; J2920; J3370; J3490; J7512; J7620; U0002